=== PATIENT | male | born 1960 | race Caucasian/White ===

== ENCOUNTER 2022-08-29 19:13 | Emergency (ER) | payer SELFPAY ==
[~2022-08-29] VITALS: Ht 160 cm; Wt 83.0 kg
[2022-08-29 19:33] VITALS: BP 138/84
--- NOTE | 2022-08-29 19:51 | NUR ---
PT TO 4
--- NOTE | 2022-08-29 19:55 | NUR ---
Received patient to ER w/ c/o abd pain to luq/llq ongoing for several days associated w/ nausea. Patient states last norml bm is today. rates pain 10/10. Introduced self to patient, positioned patient for comfort and safety w/ bed to low position sr up, continue to monitor.
[2022-08-29] MEDS ORDERED: KETOROLAC 30 MG/ML VIAL IVP ONE (20:10)
[2022-08-29] MEDS ORDERED: NACL 0.9% 1,000 ML IV SCH (20:10)
[2022-08-29] MEDS ORDERED: ONDANSETRON 4 MG/2 ML VIAL IVP ONE (20:10)
--- NOTE | 2022-08-29 20:11 | NUR ---
MD Hassan at bedside
--- NOTE | 2022-08-29 20:15 | NUR ---
Blood for labwork drawn from [facility] per RN. Patient tolerated procedure. IV h.l. started to [facility]
[2022-08-29 20:17] LABS: APPEARANCE,URINE CLEAR (CLEAR); BILIRUBIN,URINE NEGATIVE (NEGATIVE); BLOOD, URINE NEGATIVE (NEGATIVE); COLOR,URINE YELLOW (YELLOW); LEUKOCYTE ESTERASE ,URINE NEGATIVE (NEGATIVE); NITRITE, URINE NEGATIVE (NEGATIVE); UGLUCOSE NEGATIVE (NEGATIVE)
--- NOTE | 2022-08-29 20:20 | NUR ---
patient medicated as ordered w/ toradol and zofran ivp, IVNS 0.9% NS bolus started. Iv site to [facility] patent and intact. Will observe patient for any adverse reaction. bed to low position sr up, continue to monitor.
[2022-08-29 20:24] LABS: BASOPHILS % (AUTO) 0.2 % (0.0-2.0); EOSINOPHILS # (AUTO) 0.2 K/uL (0-0.4); EOSINOPHILS % (AUTO) 1.2 % (0.0-4.0); HEMATOCRIT 46.4 % (36-52); HEMOGLOBIN 15.9 g/dL (12.0-18.0); LYMPHOCYTES # (AUTO) 0.9 K/uL (2.0-11.5); LYMPHOCYTES % (AUTO) 5.3 % (20.5-51.1); MEAN CORPUSCULAR HEMOGLOBIN 30 pg (27-31); MEAN CORPUSCULAR HGB CONC 34 g/dL (33-37); MEAN CORPUSCULAR VOLUME 88.4 fL (80-94); MONOCYTES # (AUTO) 0.8 K/uL (0.8-1.0); MONOCYTES % (AUTO) 5.1 % (1.7-9.3); NEUTROPHILS # (AUTO) 14.7 K/uL (1.8-7.7); NEUTROPHILS % (AUTO) 88.2 % (42.2-75.2); PLATELET COUNT (AUTO) 252 K/uL (140-450); RED BLOOD CELL COUNT(AUTO) 5.25 MIL/uL (4.20-6.10); RED CELL DISTRIBUTION WIDTH 13.1 % (11.6-13.7); WHITE BLOOD COUNT (AUTO) 16.7 K/uL (4.8-10.8)
--- NOTE | 2022-08-29 20:24 | NUR ---
José Miguel linares in [facility] - 08/29/22 at 4 by [id number] X-Ray at bedside.
--- NOTE | 2022-08-29 20:27 | NUR ---
patient to ct scan via gurney [facility] w/ audio visual project manager.
--- NOTE | 2022-08-29 20:40 | NUR ---
Patient returned from ct scan
[2022-08-29 20:43] LABS: ALBUMIN 4.2 g/dL (3.4-5.0); ANION GAP 13.5 (8-16); CARBON DIOXIDE 27.3 mmol/L (21-32); CREATININE 1.2 mg/dL (0.6-1.3); POTASSIUM 3.8 mmol/L (3.5-5.1); TOTAL BILIRUBIN 0.7 mg/dL (0.0-1.0)
--- NOTE | 2022-08-29 21:24 | NUR ---
Patient asleep resting comfortably at this time, no adverse reaction noted to medication. continue to monitor.
[2022-08-29] MEDS ORDERED: MORPHINE SULFATE 4 MG/ML SYR ONE (21:34)
[2022-08-29] MEDS ORDERED: MORPHINE SULFATE 4 MG/ML SYR IVP ONE (21:35)
--- NOTE | 2022-08-29 21:44 | NUR ---
patient medicated w/ 4mg of morphine ivp 2nd to pain not relieved after being injected w/ toradol. Will observe patient for any adverse reaction. bed to low position sr up, continue to monitor.
[2022-08-29] MEDS ORDERED: ACET-8905 PO (21:58)
[2022-08-29] MEDS ORDERED: IBUP-2213 PO (21:58)
[2022-08-29] MEDS ORDERED: ONDA8TAB87 PO (21:58)
--- NOTE | 2022-08-29 22:26 | NUR ---
Patient discharged with v/s stable. Written and verbal after care instructions given and explained. Patient verbalized understanding. Ambulatory with steady gait. All questions addressed prior to discharge. Advised to follow up with PMD. Patient discharged with v/s stable. Written and verbal after care instructions given and explained. Patient alert, oriented and verbalized understanding of instructions. with . All questions addressed prior to discharge. ID band removed. Patient advised to follow up with PMD. Rx of zofran, ibuprofen, and norco given. Patient educated on indication of medication including possible reaction and side effects. Opportunity to ask questions provided and answered.
[2022-08-29 22:27] VITALS: BP 134/79
== END 2022-08-29 22:26 | disposition home or self-care (01) ==
LOC: MED 19:13
DX: R10.32 Left lower quadrant pain (principal); R11.0 Nausea
CPT/HCPCS: 36415; 74176; 80053; 81003; 83690; 85025; 96361; 96374; 96375; 99285; J1885; J2270; J2405; J7030